=== PATIENT | female | born 1950 | race Two or more races ===

== ENCOUNTER 2019-03-27 15:34 | Emergency (ER) | payer OTHER ==
[~2019-03-27] VITALS: Ht 165.1 cm; Wt 81.6 kg
[2019-03-27 16:02] VITALS: BP 159/71
--- NOTE | 2019-03-27 18:34 | RAD ---
3 views bilateral knees HISTORY: Pain status post fall AP lateral oblique views There is mild marginal spurring of all 3 compartments. There is no lytic destructive changes. There is no effusion appreciated. IMPRESSION: Degenerative changes. No acute findings. End impression 3 views bilateral ankles AP lateral oblique views The visualized osseous structures appear normal. The tibiotalar relationship is normal bilaterally. IMPRESSION: No acute findings. Electronically signed by: Kevin Jett III, MD (03/27/2019 6:32 PM) [facility]
--- NOTE | 2019-03-27 18:34 | RAD ---
3 views bilateral knees HISTORY: Pain status post fall AP lateral oblique views There is mild marginal spurring of all 3 compartments. There is no lytic destructive changes. There is no effusion appreciated. IMPRESSION: Degenerative changes. No acute findings. End impression 3 views bilateral ankles AP lateral oblique views The visualized osseous structures appear normal. The tibiotalar relationship is normal bilaterally. IMPRESSION: No acute findings. Electronically signed by: Kevin Jett III, MD (03/27/2019 6:32 PM) [facility]
[2019-03-27] MEDS ORDERED: IBUP-1007 PO (18:39)
--- NOTE | 2019-03-27 18:39 | PHYS DOC ---
Past Medical History Past Medical History: Diabetes-Type II Past Surgical History: No Surgical History Alcohol Use: None Drug Use: None Adult General Chief Complaint Chief Complaint: MECHANICAL FALL [facility] HPI Patient is a 68 year old female who presents to the emergency department with complaints of bilateral knee, and bilateral ankle pain after a fall yesterday. Patient states she was at work when she fell from a standing position while getting the paper. She denies any loss consciousness, head pain, nausea, vomiting, numbness, tingling, or weakness. She complains of generalized back pain, and bilateral elbow pain after the fall. She denies any swelling or deformities of her upper extremities. She currently rates her pain a 6 out of 10 on the pain scale, she denies any alleviating factors, the pain is worse when she moves her knees or ankles or when she bears weight. She denies any limited range of motion of her knees, ankles, or elbows. She reports bruises to bilateral knees. She states that when she fell she also landed on her abdomen and reports that her abdomen has also had some pain, she denies any bruising to her abdomen. All other ROS is neg unless otherwise noted in HPI. Review of Systems Review of Systems See Above Allergies Allergies Allergies Coded Allergies Type Severity Reaction Last Updated Verified No Known Drug Allergies 03/27/19 No Physical Exam Physical Exam See Above Constitutional: Well developed, well nourished, no acute distress, non-toxic appearance, obese. [] HENT: Normocephalic, atraumatic, bilateral external ears normal, nose normal. [] Eyes: PERRLA, EOMI, conjunctiva normal, no discharge. [] Neck: Normal range of motion, no stridor. [] Cardiovascular:Heart rate regular rhythm Lungs & Thorax: Respirations even and unlabored, no retractions, no respiratory distress Abdomen: Bowel sounds normal, soft, no tenderness, no masses, no pulsatile masses, no bruising. [] Skin: Warm, dry, no erythema, no rash; uses to bilateral anterior knees. [] Back: No bony tenderness; lumbar paraspinal tenderness to palpation bilaterally Extremities: Bilateral knees are tender to palpation anteriorly over the last; negative anterior and posterior drawer testing bilaterally,, patient did not tolerate stress testing of knees due to bilateral lower extremity/ankle pain; There is no swelling or deformity of either ankle however bilateral ankles are diffusely tender to palpation; no crepitus, no cyanosis, no clubbing, ROM intact, no edema. [] Neurologic: Alert and oriented X 3, no focal deficits noted. [] Psychologic: Affect normal, judgement normal, mood normal. [] Current Patient Data Vital Signs Vital Signs Date Time Temp Pulse Resp B/P (MAP) Pulse Ox O2 Delivery O2 Flow Rate FiO2 03/27/19 16:02 98.2 75 14 159/71 (100) 98 Room Air 98.2 EKG EKG [] Radiology/Procedures Radiology/Procedures PROCEDURE: KNEE BILAT 3V 3 views bilateral knees HISTORY: Pain status post fall AP lateral oblique views There is mild marginal spurring of all 3 compartments. There is no lytic destructive changes. There is no effusion appreciated. IMPRESSION: Degenerative changes. No acute findings. End impression 3 views bilateral ankles AP lateral oblique views The visualized osseous structures appear normal. The tibiotalar relationship is normal bilaterally. IMPRESSION: No acute findings. [] Course & Med Decision Making Course & Med Decision Making Pertinent Labs and Imaging studies reviewed. (See chart for details) [] Dragon Disclaimer Dragon Disclaimer This electronic medical record was generated, in whole or in part, using a voice recognition dictation system. Departure Departure Impression: Primary Impression: Contusion of left knee, initial encounter Additional Impressions: Contusion of right knee, initial encounter Fall Bilateral ankle pain Disposition: 01 HOME, SELF-CARE Condition: STABLE Referrals: UNKNOWN PCP NAME (PCP) Patient Instructions: Contusion, [id number] Additional Instructions: Fill prescription(s) and use as directed. Recommend application of ice, elevation, and rest of affected extremities. Follow-up with your primary care doctor or work comp doctor if symptoms persist. Return to the ER if your symptoms worsen. Scripts Ibuprofen (IBUPROFEN) 600 Mg Tablet 600 MG PO PRN Q6HRS PRN for INFLAMMATION for 10 Days, #40 TAB 0 Refills Prov: WILMER LAURA PSYCHIATRIC ASSISTANT 03/27/19 Problem Qualifiers Additional Impressions: Fall Encounter type: initial encounter Qualified Codes: W19.XXXA - Unspecified fall, initial encounter Bilateral ankle pain Chronicity: acute Qualified Codes: M25.571 - Pain in right ankle and joints of right foot; M25.572 - Pain in left ankle and joints of left foot WILMER LAURA PSYCHIATRIC ASSISTANT Mar 27, 2019 18:39
== END 2019-03-27 18:41 | disposition home or self-care (01) ==
LOC: ER 15:34
DX: S80.02XA Contusion of left knee, initial encounter (principal); S80.01XA Contusion of right knee, initial encounter; M25.572 Pain in left ankle and joints of left foot; M25.571 Pain in right ankle and joints of right foot; E11.9 Type 2 diabetes mellitus without complications; M54.5 Low back pain; W18.39XA Other fall on same level, initial encounter; Y93.89 Activity, other specified; Y92.89 Other specified places as the place of occurrence of the external cause; Y99.8 Other external cause status
CPT/HCPCS: 73562; 73610; 99284